=== PATIENT | female | born 1980 | race Caucasian/White ===

== ENCOUNTER 2023-09-02 14:10 | Emergency (ER) | payer MEDICAID ==
[~2023-09-02] VITALS: Ht 167.6 cm; Wt 95.3 kg
[2023-09-02 14:30] VITALS: BP_SYST 119; PULSE 91; RESP 19; TEMP 97.4; O2SAT 96
[2023-09-02] MEDS ORDERED: KETOROLAC TROMETHAMINE 60 MG/2 ML VIAL IM ONE (15:45)
[2023-09-02] MEDS ORDERED: DIAZEPAM 5 MG TABLET (VALIUM) PO ONE (16:45)
[2023-09-02] MEDS ORDERED: HYDROcodone/ACETAMIN 10-325 MG TAB PO ONE (17:15)
[2023-09-02] MEDS ORDERED: SOM350 PO (17:37)
[2023-09-02] MEDS ORDERED: DICL75TA5 PO (17:37)
[2023-09-02 18:02] VITALS: BP_SYST 119; PULSE 91; RESP 19; TEMP 97.4; O2SAT 96
== END 2023-09-02 17:53 | disposition home or self-care (01) ==
LOC: SED 14:10
DX: M54.32 Sciatica, left side (principal); M79.662 Pain in left lower leg; M54.50 Low back pain, unspecified; Z79.899 Other long term (current) drug therapy
CPT/HCPCS: 99285; 93971; 96372; J1885

== ENCOUNTER 2023-09-08 04:51 | Emergency (ER) | payer MEDICAID ==
[~2023-09-08] VITALS: Ht 165.1 cm; Wt 95.3 kg
[~2023-09-08 04:51] MED LIST: DICL75TA5 PO; SOM350 PO
[2023-09-08 05:02] VITALS: BP_SYST 136; PULSE 88; RESP 16; TEMP 96.6; O2SAT 97
[2023-09-08] MEDS ORDERED: KETOROLAC TROMETHAMINE 60 MG/2 ML VIAL IM ONE (05:45)
[2023-09-08] MEDS ORDERED: ACET1TAB93 PO (06:07)
[2023-09-08 06:26] VITALS: BP_SYST 142; PULSE 82; RESP 20; TEMP 97.3; O2SAT 97
== END 2023-09-08 06:22 | disposition home or self-care (01) ==
LOC: SED 04:51
DX: M54.50 Low back pain, unspecified (principal); Z79.899 Other long term (current) drug therapy
CPT/HCPCS: 99283; 81002; 96372; J1885